=== PATIENT | male | born 1985 | race Caucasian/White ===

== ENCOUNTER 2018-06-18 18:13 | Emergency (ER) | payer OTHER ==
[~2018-06-18] VITALS: Ht 175.3 cm; Wt 96.7 kg
[2018-06-18 18:50] VITALS: BP 153/85
[2018-06-18] MEDS ORDERED: TETRACAINE HCL/PF 0.5% OPTH 4 ML BTL OP ONE (19:20)
--- NOTE | 2018-06-18 19:25 | NUR ---
PT BIB SELF C/O LEFT EYE PAIN FOR THE PAST MONTH AND WORSENING YESTERDAY. PT STATES HE CAN FEEL "FIBERS LIKE A BROKEN TOOTHPICK" IN HIS EYE AND CAN SEE "FLOATING FIBERS". PT IS SITTING IN BED, CALM, D/C NOTED FROM LEFT EYE W/ REDNESS. PT DOES NOT WANT EYE TO BE OPENED AT THIS TIME UNTIL MD EXAMINES D/T PAIN. NO PMH , NKDA
[2018-06-18] MEDS ORDERED: TETRACAINE HCL/PF 0.5% OPTH 4 ML BTL ONE (19:27)
[2018-06-18] MEDS ORDERED: FLUORESCEIN OPTH STRIP 0.6 MG ONE (19:27)
--- NOTE | 2018-06-18 19:42 | NUR ---
Dr. Hardy evaluating patient at bedside.
[2018-06-18] MEDS ORDERED: ED NON STOCK ORDER 1 EA MISC OP ONE (20:15)
[2018-06-18] MEDS ORDERED: GENTAMICIN OP 0.3% 15 MG/5 ML BTL ONE (20:21)
[2018-06-18] MEDS ORDERED: FLUORESCEIN OPTH STRIP 0.6 MG OP ONE (20:30)
--- NOTE | 2018-06-18 20:32 | NUR ---
Patient discharged with v/s stable. Written and verbal after care instructions given and explained. Patient alert, oriented and verbalized understanding of instructions. Ambulatory with steady gait. All questions addressed prior to discharge. ID band removed. Patient advised to follow up with PMD. Rx of GENTAMICIN given. Patient educated on indication of medication including possible reaction and side effects. Opportunity to ask questions provided and answered.
[2018-06-18 20:33] VITALS: BP 148/86
== END 2018-06-18 20:32 | disposition home or self-care (01) ==
LOC: MED 18:13
DX: S05.02XA Injury of conjunctiva and corneal abrasion without foreign body, left eye, initial encounter (principal); X58.XXXA Exposure to other specified factors, initial encounter; Y93.89 Activity, other specified; Y92.89 Other specified places as the place of occurrence of the external cause; Y99.8 Other external cause status
CPT/HCPCS: 99283; 99284